=== PATIENT | female | born 1980 ===

== ENCOUNTER → 2019-03-09 | Outpatient (CLI) | payer OTHER ==
[~2019-03-09] VITALS: Ht 160 cm; Wt 118.6 kg
[~2019-03-09] MED LIST: PRENATAL PO; PROGESTERO50 MG/1 ML IM
[2019-03-09 13:59] VITALS: BP 150/90; PULSE 90
[2019-03-09 14:54] VITALS: BP 140/83; PULSE 88
--- NOTE | 2019-03-09 15:13 | NUR ---
SITE IS CDI. PT DENIES PAIN OR DISCOMFORT. PT CHANGED GOWN AND WAS TAKEN ALONG WITH HER TO LOBBY
== END ==
LOC: COL.RAD 13:30
DX: E07.9 Disorder of thyroid, unspecified (principal)
CPT/HCPCS: 32106